=== PATIENT | male | born 1995 | race Caucasian/White ===

== ENCOUNTER 2021-07-16 20:33 | Observation (INO) | payer SELFPAY ==
[2021-07-16 22:01] LABS: Absolute Neutrophil Ct (ANC) 5.36 (1.4-6.9); BASOPHIL % 0.6 % (0.0-0.4); Basophil (Absolute #) 0.04 (0-0.4); Eosinophil (Absolute #) 0.07 (0-0.5); Hematocrit 46.5 % (42-50); Hemoglobin 15.9 gm/dl (12.5-18.0); Lymphocyte (Absolute #) 1.31 (1.0-4.6); Lymphocytes % 18.2 % (24.0-44.0); Mean Cell Volume 92.4 fl (78-100); Mean Corpuscular Hemoglobin 31.6 pg (26-32); Mean Corpuscular Hgb Concent. 34.2 g/dl (32-36); Mean Platelet Volume 10.6 fl (7.5-11.0); Monocyte (Absolute #) 0.41 (0.0-1.3); Monocytes % 5.7 % (0.0-12.0); Neutrophil % 74.5 % (36.0-66.0); Platelet Count 235 K/mm3 (150-450); Red Blood Count 5.03 M/mm3 (4.1-5.6); Red Cell Distribution Width 12.3 % (11.5-14.0); White Blood Count 7.2 K/mm3 (4.0-10.5)
--- NOTE | 2021-07-16 22:17 | ERPHSYRPT ---
- History of Present Illness Time Seen by Provider: 07/16/21 20:36 Source: patient, police Exam Limitations: intoxication Patient Subjective Stated Complaint: Alcohol intoxication Triage Nursing Assessment: Patient escorted into ED via 2 police. Patient alert to self. Patient unable to stand alone without assistance. Police state they were called to a residence where the patient's parent's live due to a disturbance. Patient's parent's report to police that he is homeless and lives in [place] and they picked him up to shower and get something to eat. Patient then became intoxicated and fighting with family. Upon police arrival patient unable to stand erect per self. Physician History: 25-year-old is brought in the ER by PD who were called by parents as patient was intoxicated and was fighting with them. Patient is having difficulty/hard time standing and is sleepy, arousable and alert to self. Has a small abrasion/cut on the right forehead. Patient is placed in ED hold by PD. No further history available. Allergies/Adverse Reactions: No Known Drug Allergies Allergy (Verified 07/16/21 20:35) Home Medications: No Reportable Medications [No Reported Medications] 02/16/13 [History] Hx Tetanus, Diphtheria Vaccination/Date Given: Yes Hx Influenza Vaccination/Date Given: No Hx Pneumococcal Vaccination/Date Given: No Immunizations Up to Date: Yes Travel Risk - International Travel Have you traveled outside of the country in past 3 weeks: No - Coronavirus Screening Are you exhibiting any of the following symptoms?: No Close contact with a COVID-19 positive Pt in past 14-21 Days: No - Vaccine Status Have you recieved a Covid-19 vaccination: No 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 - Vaccination Dates Dates if Unknown: unknown - Past Medical History Pertinent Past Medical History: Yes GI Medical History: Other Psycho-Social History: Depression Other Medical History: Poor historian - Past Surgical History Past Surgical History: No Other Surgical History: Poor historian - Social History Smoking Status: Never smoker Exposure to second hand smoke: No Drug Use: marijuana Patient Lives Alone: Yes (homeless) - Review of Systems All Other Systems: Unable due to condition - Nursing Vital Signs Nursing Vital Signs: Initial Vital Signs Temperature 96.8 F 07/16/21 20:35 Pulse Rate 87 07/16/21 20:35 Respiratory Rate 18 07/16/21 20:35 Blood Pressure 119/71 07/16/21 20:35 O2 Sat by Pulse Oximetry 95 07/16/21 20:35 Pain Scale Pain Intensity 0 - Physical Exam General Appearance: no apparent distress, other (Sleepy but arousable) Eyes, Ears, Nose, Throat Exam: normal ENT inspection, TMs normal, pharynx normal, moist mucous membranes Neck Exam: normal inspection, non-tender, supple, full range of motion Respiratory Exam: normal breath sounds, lungs clear Cardiovascular Exam: regular rate/rhythm, normal heart sounds Gastrointestinal/Abdominal Exam: soft, normal bowel sounds, No tenderness Extremities Exam: normal inspection Current Suicidality: denies suicide plan Neurological Exam: calm, steam presser II-XII nml as tested, No normal mood/affect, No oriented x 3 Appearance: impaired insight Behavior/Eye Contact/Speech: intoxicated appearance Skin Exam: normal color SpO2 Interpretation: normal SpO2: 97 O2 Delivery: Room Air Ordered Tests: Active Orders 24 hr Category Date Time Status CERVICAL SPINE WO CONTRAST [CT] Stat Exams 07/16/21 21:01 Taken HEAD WITHOUT CONTRAST [CT] Stat Exams 07/16/21 21:01 Taken ACETAMINOPHEN Stat Lab 07/16/21 21:57 Completed CBC W DIFF Stat Lab 07/16/21 21:57 Completed CMP Stat Lab 07/16/21 21:57 Completed ETHYL ALCOHOL Stat Lab 07/16/21 21:57 Completed SALICYLATE Stat Lab 07/16/21 21:57 Completed UA W/RFX UR CULTURE Stat Lab 07/16/21 21:13 Ordered Urine Triage Profile Stat Lab 07/16/21 21:13 Ordered Lab/Rad Data: Laboratory Result Diagrams 07/16/21 21:57 07/16/21 21:57 Laboratory Results 07/16/21 07/16/21 Range/Units 21:57 21:57 WBC 7.2 (4.0-10.5) K/mm3 RBC 5.03 (4.1-5.6) M/mm3 Hgb 15.9 (12.5-18.0) gm/dl Hct 46.5 (42-50) % MCV 92.4 (78-100) fl MCH 31.6 (26-32) pg MCHC 34.2 (32-36) g/dl RDW 12.3 (11.5-14.0) % Plt Count 235 (150-450) K/mm3 MPV 10.6 (7.5-11.0) fl Gran % 74.5 H (36.0-66.0) % Eos # (Auto) 0.07 (0-0.5) Absolute Lymphs (auto) 1.31 (1.0-4.6) Absolute Monos (auto) 0.41 (0.0-1.3) Lymphocytes % 18.2 L (24.0-44.0) % Monocytes % 5.7 (0.0-12.0) % Eosinophils % 1.0 (0.00-5.0) % Basophils % 0.6 (0.0-0.4) % Absolute Granulocytes 5.36 (1.4-6.9) Basophils # 0.04 (0-0.4) Sodium 141 (137-145) mmol/L Potassium 4.4 (3.5-5.1) mmol/L Chloride 106 (98-107) mmol/L Carbon Dioxide 21 L (22-30) mmol/L Anion Gap 18.5 H (5-15) MEQ/L BUN 16 (9-20) mg/dL Creatinine 0.98 (0.66-1.25) mg/dL Estimated GFR > 60.0 ML/MIN Glucose 103 (74-106) mg/dL Calcium 8.5 (8.4-10.2) mg/dL Total Bilirubin 0.30 (0.2-1.3) mg/dL AST 24 (17-59) U/L ALT 14 (0-50) U/L Alkaline Phosphatase 65 (38-126) U/L Serum Total Protein 7.4 (6.3-8.2) g/dL Albumin 4.6 (3.5-5.0) g/dL Salicylates < 1.0 L (2-20) mg/dL Acetaminophen < 10 L (10-30) ug/ml Ethyl Alcohol 295 H (0-10) mg/dL - Progress Progress: unchanged Progress Note: Patient is sleepy but arousable, no obvious focal neuro deficit grossly. Obtain CT head which is negative. Has a blood alcohol of 295. Cannot be medically cleared. Discussed with , reviewed history, work-up and patient is admitted for observation and once medically cleared, behavioral health evaluation would be obtained. Discussed with : Malika Will see patient in: hospital (observation) Counseled pt/family regarding: lab results, diagnosis, need for follow-up, rad results - Departure Departure Disposition: Observation Clinical Impression: Forehead contusion Alcohol intoxication Qualifiers: Complication of substance-induced condition: with unspecified complication Qualified Code(s): F10.929 - Alcohol use, unspecified with intoxication, unspecified Condition: Stable Critical Care Time: No
[2021-07-16 22:29] LABS: ACETAMINOPHEN < 10 ug/ml (10-30); ALBUMIN 4.6 g/dL (3.5-5.0); ALKALINE PHOSPHATASE 65 U/L (38-126); ANION GAP 18.5 MEQ/L (5-15); BLOOD UREA NITROGEN 16 mg/dL (9-20); CHLORIDE 106 mmol/L (98-107); Calcium 8.5 mg/dL (8.4-10.2); Carbon Dioxide 21 mmol/L (22-30); Creatinine 1 0.98 mg/dL (0.66-1.25); EST GLOMERULAR FILTRATION RATE > 60.0 ML/MIN; ETHYL ALCOHOL 295 mg/dL (0-10); Glucose 103 mg/dL (74-106); Potassium 4.4 mmol/L (3.5-5.1); SALICYLATE < 1.0 mg/dL (2-20); SGOT/AST 24 U/L (17-59); SGPT/ALT 14 U/L (0-50); SODIUM 141 mmol/L (137-145); Total Protein 7.4 g/dL (6.3-8.2)
[2021-07-17 00:16] LABS: INFLUENZA A NEGATIVE (NEGATIVE); INFLUENZA B NEGATIVE (NEGATIVE); RESPIRATORY SYNCTIAL VIRUS NEGATIVE (Negative); SARS-CoV-2 Xpert Express NEGATIVE (NEGATIVE)
[2021-07-17] MEDS ORDERED: DUONEB 0.5-3 MG/3 ml Neb IH PRN (02:21)
[2021-07-17] MEDS ORDERED: TYLENOL 325 MG PO PRN (02:21)
[2021-07-17 06:42] LABS: Absolute Neutrophil Ct (ANC) 3.14 (1.4-6.9); BASOPHIL % 0.3 % (0.0-0.4); Basophil (Absolute #) 0.02 (0-0.4); Eosinophil % 2.3 % (0.00-5.0); Eosinophil (Absolute #) 0.14 (0-0.5); Hematocrit 46.9 % (42-50); Hemoglobin 16.1 gm/dl (12.5-18.0); Lymphocyte (Absolute #) 2.16 (1.0-4.6); Mean Cell Volume 91.6 fl (78-100); Mean Corpuscular Hemoglobin 31.4 pg (26-32); Mean Corpuscular Hgb Concent. 34.3 g/dl (32-36); Mean Platelet Volume 10.8 fl (7.5-11.0); Monocyte (Absolute #) 0.54 (0.0-1.3); Neutrophil % 52.4 % (36.0-66.0); Platelet Count 246 K/mm3 (150-450); Red Blood Count 5.12 M/mm3 (4.1-5.6); Red Cell Distribution Width 12.3 % (11.5-14.0)
[2021-07-17 07:11] LABS: ALBUMIN 4.5 g/dL (3.5-5.0); ALKALINE PHOSPHATASE 68 U/L (38-126); ANION GAP 15.9 MEQ/L (5-15); BLOOD UREA NITROGEN 11 mg/dL (9-20); CHLORIDE 106 mmol/L (98-107); Calcium 8.4 mg/dL (8.4-10.2); Carbon Dioxide 23 mmol/L (22-30); Creatinine 1 0.98 mg/dL (0.66-1.25); EST GLOMERULAR FILTRATION RATE > 60.0 ML/MIN; Glucose 94 mg/dL (74-106); Potassium 4.2 mmol/L (3.5-5.1); SGOT/AST 19 U/L (17-59); SGPT/ALT 13 U/L (0-50); SODIUM 142 mmol/L (137-145); Total Protein 6.9 g/dL (6.3-8.2)
--- NOTE | 2021-07-17 07:53 | XRAY ---
Indication: Trauma following fall. Contusion. Intoxication. Multiple contiguous axial images obtained through the head without contrast. Comparison: None Normal appearing brain parenchyma, ventricles, and bony calvarium. Visualized paranasal sinuses and mastoid air cells are clear. Impression: Normal CT head without contrast exam. Comment: Preliminary interpretation made by [facility]. No critical discrepancy.
--- NOTE | 2021-07-17 07:55 | XRAY ---
Indication: Trauma following fall. Contusion. Intoxication. Multiple contiguous axial images obtained through the cervical spine. Sagittal and coronal reformatted images obtained. Comparison: None Axial images negative for acute fracture, suspicious bony lesions, or spinal canal stenosis. Sagittal and coronal reformatted images demonstrates lordotic straightening, positional versus paraspinal spasm. Vertebral body heights/disc spaces are maintained. No acute compression fracture, subluxation, or jumped facet. Normal appearing craniocervical junction. Visualized noncontrasted soft tissues including on apices are unremarkable. Impression: Cervical lordotic straightening, positional versus paraspinal spasm. Remaining CT cervical spine is negative. Comment: Preliminary interpretation made by [facility]. No critical discrepancy.
--- NOTE | 2021-07-17 08:09 | PCM.HP ---
History of Present Illness - Chief Complaint Chief Complaint: Alcohol intoxication History of Present Illness: is a 25 year old male.who were called by parents as patient was intoxicated and was fighting with them. Patient is having difficulty/hard time standing and is sleepy, arousable and alert to self. Has a small abrasion/cut on the right forehead. Patient is placed in ED hold by PD. No further history available. - Review of Systems Constitutional: Lethargy, Weakness, No Fever, No Chills Eyes: No Symptoms Ears, Nose, & Throat: No Symptoms Respiratory: No Cough, No Short Of Breath Cardiac: No Chest Pain, No Edema, No Syncope Abdominal/Gastrointestinal: No Abdominal Pain, No Nausea, No Vomiting, No Diarrh ea Genitourinary Symptoms: No Dysuria Musculoskeletal: No Back Pain, No Neck Pain Skin: No Rash Neurological: Lethargy, No Dizziness, No Focal Weakness, No Sensory Changes Psychological: No Symptoms Endocrine: No Symptoms Hematologic/Lymphatic: No Symptoms Immunological/Allergic: No Symptoms Medications & Allergies Home Medications: Home Medication List No Reportable Medications [No Reported Medications] 02/16/13 [History Confirmed 10/21/13] Allergies/Adverse Reactions: Allergies Allergy/AdvReac Type Severity Reaction Status Date / Time No Known Drug Allergies Allergy Verified 07/16/21 20:35 - Past Medical History Past Medical History: Yes GI Medical History: Other Pyscho-Social History: Depression Comment: Poor historian - Past Surgical History Past Surgical History: No Other Surgical History: Poor historian - Social History Smoking Status: Current every day smoker Exposure to second hand smoke: Yes Alcohol: Occasionally Drug Use: marijuana - Physical Exam Vital Signs: Vital Signs - 24 hr Temp Pulse Resp BP Pulse Ox 07/17/21 04:00 98.2 F 90 18 123/77 96 07/17/21 03:25 90 18 96 07/17/21 02:32 98.2 F 96 H 20 123/77 98 07/17/21 01:35 61 16 108/68 97 07/17/21 00:22 75 102/71 96 07/16/21 23:00 77 116/66 97 07/16/21 22:52 97 07/16/21 22:11 80 14 114/79 97 07/16/21 20:35 96.8 F 87 18 119/71 95 General Appearance: mild distress, lethargy Neurologic Exam: alert Eye Exam: PERRL/EOMI Ears, Nose, Throat Exam: normal ENT inspection Neck Exam: normal inspection Respiratory Exam: normal breath sounds Cardiovascular Exam: regular rate/rhythm Gastrointestinal/Abdomen Exam: soft Back Exam: normal inspection Extremity Exam: normal inspection Skin Exam: normal color Results - Labs Lab/Micro Results: Lab Results-Last 24 Hours 07/16/21 07/16/21 07/16/21 Range/Units 21:57 21:57 23:24 WBC 7.2 (4.0-10.5) K/mm3 RBC 5.03 (4.1-5.6) M/mm3 Hgb 15.9 (12.5-18.0) gm/dl Hct 46.5 (42-50) % MCV 92.4 (78-100) fl MCH 31.6 (26-32) pg MCHC 34.2 (32-36) g/dl RDW 12.3 (11.5-14.0) % Plt Count 235 (150-450) K/mm3 MPV 10.6 (7.5-11.0) fl Gran % 74.5 H (36.0-66.0) % Eos # (Auto) 0.07 (0-0.5) Absolute Lymphs (auto) 1.31 (1.0-4.6) Absolute Monos (auto) 0.41 (0.0-1.3) Lymphocytes % 18.2 L (24.0-44.0) % Monocytes % 5.7 (0.0-12.0) % Eosinophils % 1.0 (0.00-5.0) % Basophils % 0.6 (0.0-0.4) % Absolute Granulocytes 5.36 (1.4-6.9) Basophils # 0.04 (0-0.4) Sodium 141 (137-145) mmol/L Potassium 4.4 (3.5-5.1) mmol/L Chloride 106 (98-107) mmol/L Carbon Dioxide 21 L (22-30) mmol/L Anion Gap 18.5 H (5-15) MEQ/L BUN 16 (9-20) mg/dL Creatinine 0.98 (0.66-1.25) mg/dL Estimated GFR > 60.0 ML/MIN Glucose 103 (74-106) mg/dL Calcium 8.5 (8.4-10.2) mg/dL Total Bilirubin 0.30 (0.2-1.3) mg/dL AST 24 (17-59) U/L ALT 14 (0-50) U/L Alkaline Phosphatase 65 (38-126) U/L Serum Total Protein 7.4 (6.3-8.2) g/dL Albumin 4.6 (3.5-5.0) g/dL Salicylates < 1.0 L (2-20) mg/dL Acetaminophen < 10 L (10-30) ug/ml Ethyl Alcohol 295 H (0-10) mg/dL Influenza Type A Ag NEGATIVE (NEGATIVE) Influenza Type B Ag NEGATIVE (NEGATIVE) RSV (PCR) NEGATIVE (Negative) SARS-CoV-2 (PCR) NEGATIVE (NEGATIVE) 07/17/21 07/17/21 07/17/21 Range/Units 06:10 06:10 06:10 WBC 6.0 (4.0-10.5) K/mm3 RBC 5.12 (4.1-5.6) M/mm3 Hgb 16.1 (12.5-18.0) gm/dl Hct 46.9 (42-50) % MCV 91.6 (78-100) fl MCH 31.4 (26-32) pg MCHC 34.3 (32-36) g/dl RDW 12.3 (11.5-14.0) % Plt Count 246 (150-450) K/mm3 MPV 10.8 (7.5-11.0) fl Gran % 52.4 (36.0-66.0) % Eos # (Auto) 0.14 (0-0.5) Absolute Lymphs (auto) 2.16 (1.0-4.6) Absolute Monos (auto) 0.54 (0.0-1.3) Lymphocytes % 36.0 (24.0-44.0) % Monocytes % 9.0 (0.0-12.0) % Eosinophils % 2.3 (0.00-5.0) % Basophils % 0.3 (0.0-0.4) % Absolute Granulocytes 3.14 (1.4-6.9) Basophils # 0.02 (0-0.4) Sodium 142 (137-145) mmol/L Potassium 4.2 (3.5-5.1) mmol/L Chloride 106 (98-107) mmol/L Carbon Dioxide 23 (22-30) mmol/L Anion Gap 15.9 H (5-15) MEQ/L BUN 11 (9-20) mg/dL Creatinine 0.98 (0.66-1.25) mg/dL Estimated GFR > 60.0 ML/MIN Glucose 94 (74-106) mg/dL Calcium 8.4 (8.4-10.2) mg/dL Total Bilirubin 0.30 (0.2-1.3) mg/dL AST 19 (17-59) U/L ALT 13 (0-50) U/L Alkaline Phosphatase 68 (38-126) U/L Serum Total Protein 6.9 (6.3-8.2) g/dL Albumin 4.5 (3.5-5.0) g/dL Salicylates (2-20) mg/dL Acetaminophen (10-30) ug/ml Ethyl Alcohol 180 H (0-10) mg/dL Influenza Type A Ag (NEGATIVE) Influenza Type B Ag (NEGATIVE) RSV (PCR) (Negative) SARS-CoV-2 (PCR) (NEGATIVE) - Radiology Impressions Radiology Exams & Impressions: Radiology Procedures Category Date Time Status CERVICAL SPINE WO CONTRAST [CT] Stat Exams 07/16/21 21:01 Completed HEAD WITHOUT CONTRAST [CT] Stat Exams 07/16/21 21:01 Completed Assessment/Plan (1) Alcohol intoxication Current Visit: Yes Status: Acute Qualifiers: Complication of substance-induced condition: with unspecified complication Qualified Code(s): F10.929 - Alcohol use, unspecified with intoxication, unspecified Assessment & Plan: Chief Complaint Diagnosis Alcohol intoxication Allergies Allergy/AdvReac Type Severity Reaction Status Date / Time No Known Drug Allergies Allergy Verified 07/16/21 20:35 Vital Signs (Last 24 hours) Temp Pulse Resp BP Pulse Ox 07/17/21 04:00 98.2 F 90 18 123/77 96 07/17/21 03:25 90 18 96 07/17/21 02:32 98.2 F 96 H 20 123/77 98 07/17/21 01:35 61 16 108/68 97 07/17/21 00:22 75 102/71 96 07/16/21 23:00 77 116/66 97 07/16/21 22:52 97 07/16/21 22:11 80 14 114/79 97 07/16/21 20:35 96.8 F 87 18 119/71 95 Current Medications Generic Name Dose Route Start Last Admin Trade Name Litzy PRN Reason Stop Dose Admin Acetaminophen 650 mg 07/17/21 02:21 Acetaminophen 325 Mg Tablet PO 08/16/21 02:20 Q4H PRN PRN PAIN AND/OR FEVER Discontinued Medications Generic Name Dose Route Start Last Admin Trade Name Litzy PRN Reason Stop Dose Admin Albuterol/Ipratropium 3 ml 07/17/21 02:21 Ipratropium/Albuterol Sulfate 3 Ml Ampul.Neb IH 08/16/21 02:20 Q4HPRN PRN SHORTNESS OF BREATH/WHEEZING Intake & Output (Last 24 hours) 07/14/21 07/15/21 07/16/21 07/17/21 11:59 11:59 11:59 11:59 Weight 86.9 kg Laboratory Results (Last 24 hours) 07/17/21 07/17/21 07/17/21 06:10 06:10 06:10 WBC 6.0 RBC 5.12 Hgb 16.1 Hct 46.9 MCV 91.6 MCH 31.4 MCHC 34.3 RDW 12.3 Plt Count 246 MPV 10.8 Gran % 52.4 Eos # (Auto) 0.14 Absolute Lymphs (auto) 2.16 Absolute Monos (auto) 0.54 Lymphocytes % 36.0 Monocytes % 9.0 Eosinophils % 2.3 Basophils % 0.3 Absolute Granulocytes 3.14 Basophils # 0.02 Sodium 142 Potassium 4.2 Chloride 106 Carbon Dioxide 23 Anion Gap 15.9 H BUN 11 Creatinine 0.98 Estimated GFR > 60.0 Glucose 94 Calcium 8.4 Total Bilirubin 0.30 AST 19 ALT 13 Alkaline Phosphatase 68 Serum Total Protein 6.9 Albumin 4.5 Salicylates Acetaminophen Ethyl Alcohol 180 H Influenza Type A Ag Influenza Type B Ag RSV (PCR) SARS-CoV-2 (PCR) 07/16/21 07/16/21 07/16/21 23:24 21:57 21:57 WBC 7.2 RBC 5.03 Hgb 15.9 Hct 46.5 MCV 92.4 MCH 31.6 MCHC 34.2 RDW 12.3 Plt Count 235 MPV 10.6 Gran % 74.5 H Eos # (Auto) 0.07 Absolute Lymphs (auto) 1.31 Absolute Monos (auto) 0.41 Lymphocytes % 18.2 L Monocytes % 5.7 Eosinophils % 1.0 Basophils % 0.6 Absolute Granulocytes 5.36 Basophils # 0.04 Sodium 141 Potassium 4.4 Chloride 106 Carbon Dioxide 21 L Anion Gap 18.5 H BUN 16 Creatinine 0.98 Estimated GFR > 60.0 Glucose 103 Calcium 8.5 Total Bilirubin 0.30 AST 24 ALT 14 Alkaline Phosphatase 65 Serum Total Protein 7.4 Albumin 4.6 Salicylates < 1.0 L Acetaminophen < 10 L Ethyl Alcohol 295 H Influenza Type A Ag NEGATIVE Influenza Type B Ag NEGATIVE RSV (PCR) NEGATIVE SARS-CoV-2 (PCR) NEGATIVE Orders (Last 24 hours) Category Date Time Status Bedrest ROUTINE Activity 07/17/21 02:21 Active Up With Assistance ROUTINE Activity 07/17/21 02:21 Active Code Status Order ROUTINE Care 07/17/21 02:21 Active Fall Protocol Q1H Care 07/17/21 02:21 Active IV Care Q6H Care 07/17/21 02:21 Active Neuro Checks Q1H Care 07/17/21 02:[address] in Observation ROUTINE Care 07/17/21 02:21 Active Collin Flood ROUTINE Care 07/17/21 02:21 Active CERVICAL SPINE WO CONTRAST [CT] Stat Exams 07/16/21 21:01 Completed HEAD WITHOUT CONTRAST [CT] Stat Exams 07/16/21 21:01 Completed ACETAMINOPHEN Stat Lab 07/16/21 21:57 Completed CBC W DIFF AM.LAB Lab 07/17/21 06:10 Completed CBC W DIFF Stat Lab 07/16/21 21:57 Completed CMP AM.LAB Lab 07/17/21 06:10 Completed CMP Stat Lab 07/16/21 21:57 Completed ETHYL ALCOHOL Stat Lab 07/16/21 21:57 Completed ETHYL ALCOHOL Stat Lab 07/17/21 06:10 Completed SALICYLATE Stat Lab 07/16/21 21:57 Completed UA W/RFX UR CULTURE Stat Lab 07/16/21 21:13 Ordered Urine Triage Profile Stat Lab 07/16/21 21:13 Ordered Acetaminophen 325 mg [Tylenol 325 mg] Med 07/17/21 02:21 Active 650 mg PO Q4H PRN PRN Albuterol/Ipratropium 3ml Neb* [DUONEB 0.5-3 MG/3 ml Med 07/17/21 02:21 Discontinued Neb] 3 ml IH Q4HPRN PRN Respiratory Therapy Assessment DAILY RT 07/17/21 03:24 Completed (2) Forehead contusion Current Visit: Yes Status: Acute Qualifiers: Encounter type: initial encounter Qualified Code(s): S00.83XA - Contusion of other part of head, initial encounter Code(s): S00.83XA - CONTUSION OF OTHER PART OF HEAD, INITIAL ENCOUNTER
[2021-07-17 12:18] VITALS: BP 142/74; PULSE 105; O2SAT 98
--- NOTE | 2021-07-18 18:25 | PCM.DS ---
Discharge Summary Date of Admission: 07/17/21 02:18 Admitting Physician: SHANNON FRANCOIS Primary Care Provider: NO FAMILY DOCTOR Allergies Allergies No Known Drug Allergies Allergy (Verified 07/16/21 20:35) Hospital Summary - Hospital Course Hospital Course: Chief Complaint Diagnosis Alcohol intoxication Allergies Allergy/AdvReac Type Severity Reaction Status Date / Time No Known Drug Allergies Allergy Verified 07/16/21 20:35 Current Medications Discontinued Medications Generic Name Dose Route Start Last Admin Trade Name Freq PRN Reason Stop Dose Admin Acetaminophen 650 mg 07/17/21 02:21 Acetaminophen 325 Mg Tablet PO 08/16/21 02:20 Q4H PRN PRN PAIN AND/OR FEVER Albuterol/Ipratropium 3 ml 07/17/21 02:21 Ipratropium/Albuterol Sulfate 3 Ml Ampul.Neb IH 08/16/21 02:20 Q4HPRN PRN SHORTNESS OF BREATH/WHEEZING Intake & Output (Last 24 hours) 07/16/21 07/17/21 07/18/21 07/19/21 11:59 11:59 11:59 11:59 Intake Total 420 800 Balance 420 800 Weight 86.9 kg - Vitals & Intake/Output Vital Signs: Vital Signs Temperature 98.3 F 07/17/21 12:00 Pulse Rate 105 H 07/17/21 12:00 Respiratory Rate 18 07/17/21 16:00 Blood Pressure 142/74 07/17/21 12:00 O2 Sat by Pulse Oximetry 98 07/17/21 12:00 Intake & Output: Intake & Output 07/16/21 07/17/21 07/18/21 07/19/21 11:59 11:59 11:59 11:59 Intake Total 420 800 Balance 420 800 Weight 86.9 kg - Lab Result Diagrams: 07/17/21 06:10 07/17/21 06:10 - Radiology Exams Ordered Rad Exams-Entire Visit: Radiology Procedures Category Date Time Status CERVICAL SPINE WO CONTRAST [CT] Stat Exams 07/16/21 21:01 Completed HEAD WITHOUT CONTRAST [CT] Stat Exams 07/16/21 21:01 Completed - Procedures and Test Procedures and Tests throughout Hospitalization: Therapy Orders & Screens 07/17/21 03:24 Respiratory Therapy Assessment DAILY Comment: Diagnosis: Alcohol intoxication Discharge Exam General Appearance: no apparent distress, alert Neurologic Exam: alert, oriented x 3, cooperative, normal mood/affect, nml cerebellar function, sensation nml, No motor deficits Eye Exam: PERRL, EOMI, eyes nml inspection Ears, Nose, Throat Exam: normal ENT inspection, pharynx normal, moist mucous membranes Neck Exam: normal inspection, non-tender, supple, full range of motion Respiratory Exam: normal breath sounds, lungs clear, No respiratory distress Cardiovascular Exam: regular rate/rhythm, normal heart sounds Gastrointestinal/Abdomen Exam: soft, No tenderness, No mass Male Genitalia Exam: deferred Rectal Exam: deferred Back Exam: normal inspection, normal range of motion, No CVA tenderness, No vertebral tenderness Extremity Exam: normal inspection, normal range of motion Skin Exam: normal color, warm, dry Final Diagnosis/Problem List - Final Discharge Diagnosis/Problem (1) Alcohol intoxication Status: Resolved (2) Forehead contusion Status: Resolved Code(s): S00.83XA - CONTUSION OF OTHER PART OF HEAD, INITIAL ENCOUNTER - Discharge Discharge Date: 07/17/21 Disposition: Home, Self-Care Condition: Stable Prescriptions: No Action No Reportable Medications [No Reported Medications] Instructions: Effects of Alcohol on Your Health Follow up with: DOCTOR,NO FAMILY [Primary Care Provider] -
== END 2021-07-17 16:22 | disposition home or self-care (01) ==
LOC: ED 20:33 → MED SURG 07-17 02:18 → EEVIPCON 07-17 02:18
PROVIDERS: ADMIT General Practice; ATTEND General Practice
DX: F10.929 Alcohol use, unspecified with intoxication, unspecified (principal); S00.83XA Contusion of other part of head, initial encounter; R53.1 Weakness; F17.200 Nicotine dependence, unspecified, uncomplicated; Z20.828 Contact with and (suspected) exposure to other viral communicable diseases
CPT/HCPCS: 0241U; 36415; 70450; 72125; 80053; 80307; 85025; 93005; 99285; G0378; G0480